=== PATIENT | female | born 1935 | race African-American/Black ===

== ENCOUNTER 2017-11-02 14:24 | Outpatient (CLI) | payer MEDICARE | END 2017-11-02 14:25 | disposition home or self-care (01) | LOC: ULT 14:24 | PROVIDERS: ATTEND Internal Medicine | DX: R01.1 Cardiac murmur, unspecified (principal); I08.1 Rheumatic disorders of both mitral and tricuspid valves; I25.10 Atherosclerotic heart disease of native coronary artery without angina pectoris; I51.7 Cardiomegaly | CPT/HCPCS: 93306 ==

== ENCOUNTER 2023-04-09 13:53 | Observation (INO) | payer MEDICARE, OTHER ==
[2023-04-09 18:05] VITALS: BMI 26.9
[2023-04-09] MEDS ORDERED: Acetaminophen 650 MG Suppository PR PRN (18:15)
[2023-04-09] MEDS ORDERED: Acetaminophen 325 MG TAB PO PRN (18:15)
[2023-04-09] MEDS ORDERED: Non-Formulary Item 1 EACH (Risperidone [Risperdal] 0.5 MG Tab) PO PRN (18:41)
[2023-04-09] MEDS ORDERED: Lorazepam 0.5 MG TAB PO PRN (18:41)
[2023-04-09] MEDS ORDERED: Glucagon 1 MG/ML KIT IM PRN (19:45)
[2023-04-09] MEDS ORDERED: Dextrose 5% in Water 1,000 ML IV PRN (19:45)
[2023-04-09] MEDS ORDERED: Dextrose 50% Abboject 50 ML SYRINGE SLOW IVP PRN (19:45)
[2023-04-09] MEDS ORDERED: HumaLOG 300 UNITS/3 ML VIAL SC PRN (19:45)
[2023-04-09 19:58] LABS: Hemoglobin 7.9 g/dL (12.0-16.0)
[2023-04-09 20:20] LABS: Anion Gap 12 mmol/L (10-20); BUN (Urea Nitrogen) 36 mg/dL (9.8-20.1); Calc. Creatinine Clearance 21 mL/min (70-130); Calcium 8.8 mg/dL (7.8-10.44); Carbon Dioxide 21 mmol/L (23-31); Chloride 101 mmol/L (98-107); Estimated GFR 25; Glucose 137 mg/dL (83-110); Iron 69 ug/dL (50-170); Iron Binding Capacity, Total 411 mcg/dL (265-497); Potassium 3.6 mmol/L (3.5-5.1); Sodium 130 mmol/L (136-145)
[2023-04-09] MEDS ORDERED: rOPINIRole HCl 0.5 MG TAB PO SCH (21:00)
[2023-04-09] MEDS ORDERED: Pantoprazole 40 MG VIAL IVP SCH (21:00)
[2023-04-09] MEDS ORDERED: traZODone HCl 50 MG TAB PO SCH (21:00)
[2023-04-09] MEDS ORDERED: Sodium Chloride 0.9% 1,000 ML IV SCH (21:30)
[2023-04-09 23:17] LABS: Hematocrit 24.8 % (36.0-47.0); Hemoglobin 7.7 g/dL (12.0-16.0)
[2023-04-10 06:13] LABS: #Basophils 0.1 thou/uL (0.0-0.2); #Eosinphils 0.3 thou/uL (0.0-0.7); #Monocytes 1.4 thou/uL (0.11-0.59); #Neutrophils 6.1 thou/uL (1.40-6.50); %Basophils 0.8 % (0.0-1.0); %Eosinophils 3.2 % (0.0-10.0); %Lymphocytes 15.4 % (21.0-51.0); %Monocytes 15.2 % (0.0-10.0); Hematocrit 26.5 % (36.0-47.0); Hemoglobin 7.9 g/dL (12.0-16.0); Mean Corpuscular HGB CONC 29.8 g/dL (32.0-36.0); Mean Corpuscular Hemoglobin 21.7 pg (27.0-31.0); Mean Corpuscular Volume 72.8 fl (78.0-98.0); Mean Platelet Volume 9.8 fL (7.4-10.4); Platelet Count 405 10x3/uL (130-400); RBC Distribution Width 25.4 % (11.5-14.5); Red Blood Cell (RBC) Count 3.64 mill/uL (4.20-5.40); White Blood Cell (WBC) Count 9.5 10x3/uL (4.8-10.8)
[2023-04-10 06:41] LABS: ALT (SGPT) Less than 7 U/L (8-55); AST (SGOT) 12 U/L (5-34); Albumin 3.4 g/dL (3.4-4.8); Alkaline Phosphatase 39 U/L (40-110); Anion Gap 11 mmol/L (10-20); BUN (Urea Nitrogen) 33 mg/dL (9.8-20.1); Bilirubin, Total 1.4 mg/dL (0.2-1.2); Calc. Creatinine Clearance 22 mL/min (70-130); Calcium 8.6 mg/dL (7.8-10.44); Carbon Dioxide 23 mmol/L (23-31); Chloride 105 mmol/L (98-107); Estimated GFR 26; Globulin 3.1 g/dL (2.4-3.5); Glucose 104 mg/dL (83-110); Potassium 3.8 mmol/L (3.5-5.1); Protein, Total 6.5 g/dL (5.8-8.1); Sodium 135 mmol/L (136-145)
[2023-04-10 07:49] VITALS: TEMP 96.9
[2023-04-10] MEDS ORDERED: Sodium Chloride 0.9% 1,000 ML IV SCH (08:59)
[2023-04-10] MEDS ORDERED: Sertraline 100 MG TAB PO SCH (09:00)
[2023-04-10] MEDS ORDERED: Lisinopril 20 MG TAB PO SCH (09:00)
[2023-04-10] MEDS ORDERED: Polyethylene Glycol 3350 17 GM Packet PO SCH (09:00)
[2023-04-10] MEDS ORDERED: Hydrochlorothiazide 25 MG TAB PO SCH (09:00)
[2023-04-10 10:13] LABS: Hematocrit 30.2 % (36.0-47.0); Hemoglobin 8.9 g/dL (12.0-16.0)
[2023-04-10] MEDS ORDERED: Albuterol 200 PUFF (6.7GM INHALER) INH PRN (13:51)
[2023-04-10 16:38] VITALS: BP 172/76
[2023-04-10] MEDS ORDERED: Ferrous Sulfate 325 MG TAB PO SCH (17:00)
== END 2023-04-10 18:20 | disposition home or self-care (01) ==
LOC: INTOOBSV 16:30 → T4-A 16:30
PROVIDERS: ADMIT Internal Medicine; ATTEND Internal Medicine
DX: D64.9 Anemia, unspecified (principal); G20 Parkinson's disease; F02.80 Dementia in other diseases classified elsewhere, unspecified severity, without behavioral disturbance, psychotic disturbance, mood disturbance, and anxiety; I11.0 Hypertensive heart disease with heart failure; I50.9 Heart failure, unspecified; K92.2 Gastrointestinal hemorrhage, unspecified; N17.9 Acute kidney failure, unspecified; R06.2 Wheezing; E11.9 Type 2 diabetes mellitus without complications; Z79.899 Other long term (current) drug therapy
CPT/HCPCS: 71045; 80048; 80053; 82728; 82962 ×2; 83540; 83550; 85014 ×2; 85018 ×2; 85025; 96374; G0378 ×2; 36415; 36416; C9113; J7050